=== PATIENT | female | born 1955 | race Caucasian/White ===

== ENCOUNTER 2017-10-26 23:48 | Emergency (ER) | payer BC ==
[~2017-10-26] VITALS: Ht 167.6 cm; Wt 59.0 kg
[2017-10-27] MEDS ORDERED: NORVASC10 MG ORAL (00:23)
--- NOTE | 2017-10-27 00:24 | Emergency Room Report ---
History of Present Illness General Chief Complaint: Hypertension Source: Patient Present Illness HPI This is a 62-year-old female with a history of high blood pressure before. Never been on any medication. She has a history of alcoholism. Last drink was about 10 days ago. She was at an ER in [facility]. Blood work was unremarkable. She just got to [place] for rehabilitation. Her blood pressure was elevated. She has no symptoms. No nausea no vomiting. No fever or chills. No chest pain. She was brought here for evaluation. Allergies: Coded Allergies: SULFA (SULFONAMIDE ANTIBIOTICS) (Verified Allergy, Unknown, 10/26/17) Patient History Past Medical History: see triage record, old chart reviewed Past Surgical History: other Pertinent Family History: none Social History: Reports: alcohol use, Denies: smoking Last Menstrual Period: 12 years Now: No Immunizations: other Reviewed Nursing Documentation: PMH: Agreed, PSxH: Agreed Nursing Documentation-PMH Past Medical History: No Stated History Review of Systems Eye: Denies: eye pain, blurred vision ENT: Denies: ear pain, nose congestion, throat swelling Respiratory: Denies: cough, shortness of breath Cardiovascular: Denies: chest pain, palpitations Gastrointestinal: Denies: abdominal pain, diarrhea, nausea, vomiting Musculoskeletal: Denies: back pain, joint pain Skin: Denies: rash Neurological: Denies: headache, numbness Endocrine: Denies: increased thirst, increased urine Hematologic/Lymphatic: Denies: easy bruising All Other Systems: negative except mentioned in HPI Physical Exam Vital Signs Date Time Temp Pulse Resp B/P (MAP) Pulse Ox O2 Delivery O2 Flow Rate FiO2 10/26/17 23:51 98.1 65 17 190/100 99 Room Air vital signs blood pressure Sp02 EP Interpretation: reviewed, normal General Appearance: well appearing, no apparent distress, alert Head: normocephalic, atraumatic Eyes: bilateral eye PERRL, bilateral eye EOMI ENT: hearing grossly normal, normal pharynx Neck: full range of motion, supple, no meningismus Respiratory: chest non-tender, lungs clear, normal breath sounds Cardiovascular #1: regular rate, rhythm, no murmur Gastrointestinal: normal bowel sounds, non tender, no mass, no organomegaly, no bruit, non-distended Musculoskeletal: back normal, gait/station normal, normal range of motion Psychiatric: mood/affect normal Skin: warm/dry Medical Decision Making Diagnostic Impression: Primary Impression: Hypertension Qualified Codes: I10 - Essential (primary) hypertension ER Course Patient presents with asymptomatic her blood pressure. We'll discharge home with medication. No evidence of end organ damage. She said that her blood work from 10 days ago was normal. Last Vital Signs Date Time Temp Pulse Resp B/P (MAP) Pulse Ox O2 Delivery O2 Flow Rate FiO2 10/27/17 00:15 65 17 Room Air 10/26/17 23:51 98.1 190/100 99 Status: improved Disposition: HOME, SELF-CARE Condition: Stable Scripts Amlodipine Besylate (Norvasc) 10 Mg Tablet 5 MG ORAL DAILY, #30 TAB Prov: MICHAELA KEARNEY M.D. 10/27/17 Patient Instructions: High Blood Pressure (Hypertension) Additional Instructions: Followup with your Dr. in 7 days. Return if symptom worsen. MICHAELA KEARNEY M.D. Oct 27, 2017 00:24
[2017-10-27 00:38] VITALS: BP 152/89
== END 2017-10-27 00:38 | disposition home or self-care (01) ==
LOC: EMR 23:59
DX: I10 Essential (primary) hypertension (principal); Z88.2 Allergy status to sulfonamides
CPT/HCPCS: 99283